=== PATIENT | female | born 1930 | race Hispanic/Latino ===

== ENCOUNTER 2018-12-17 08:33 | Outpatient (CLI) | payer MEDICARE ==
--- NOTE | 2018-12-17 10:59 | MRI ---
MRI BRAIN PRE AND POST CONTRAST: HISTORY: An 88-year-old female with a history of headaches for three months. COMPARISON: 06/14/2016 TECHNIQUE: Multiplanar, multisequence pre and post contrast enhanced MR images of the brain obtained. FINDINGS: Images demonstrate no evidence of areas of diffusion restriction. No evidence of acute strokes, hemo rrhages, or masses seen. Cortical atrophy and deep white matter ischemic changes seen. Normal flow voids seen in the major intracranial vessels. IMPRESSION: 1. 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 2. No acute intracranial abnormalities seen. POS: [facility]
[2018-12-17] MEDS ORDERED: Gadobenate Dimeglumine 529 MG/1 ML (20ML VIAL) ONE (12:38)
== END 2018-12-17 08:34 | disposition home or self-care (01) ==
LOC: BICMRI 08:33
PROVIDERS: ATTEND Family Medicine
DX: G30.9 Alzheimer's disease, unspecified (principal); R51 Headache; G31.9 Degenerative disease of nervous system, unspecified
CPT/HCPCS: 70553; A9577